=== PATIENT | female | born 1995 | race Caucasian/White ===

== ENCOUNTER 2017-03-20 18:25 | Emergency (ER) | payer BC, OTHER ==
[~2017-03-20] VITALS: Ht 165.1 cm; Wt 114.8 kg
[2017-03-20 18:28] VITALS: BP 138/89
== END 2017-03-20 20:18 | disposition home or self-care (01) ==
LOC: ED 20:03
DX: S16.1XXA Strain of muscle, fascia and tendon at neck level, initial encounter (principal); S20.212A Contusion of left front wall of thorax, initial encounter; I88.9 Nonspecific lymphadenitis, unspecified; V49.9XXA Car occupant (driver) (passenger) injured in unspecified traffic accident, initial encounter; Y93.89 Activity, other specified; Y92.488 Other paved roadways as the place of occurrence of the external cause; Y99.8 Other external cause status
CPT/HCPCS: 70450; 72125; 99284

== ENCOUNTER 2019-06-30 10:45 | Emergency (ER) | payer BC, OTHER ==
[~2019-06-30] VITALS: Ht 170.2 cm; Wt 114.5 kg
[2019-06-30 13:08] LABS: BASOPHILS # (AUTO) 0.02 x10^3/uL (0-0.1); BASOPHILS % (AUTO) 0 % (0-1); EOSINOPHILS # (AUTO) 0.41 x10^3/uL (0-0.4); EOSINOPHILS % (AUTO) 3 % (1-7); LYMPHOCYTES # (AUTO) 3.48 x10^3/uL (1-3.4); LYMPHOCYTES % (AUTO) 22 % (22-44); MD NO; MEAN CORPUSCULAR HEMOGLOBIN 31.7 pg (27.0-34.8); MEAN CORPUSCULAR HGB CONC 33.8 g/dL (32.4-35.8); MEAN CORPUSCULAR VOLUME 93.9 fL (80-100); MEAN PLATELET VOLUME 8.5 fL (7.4-10.4); MONOCYTES # (AUTO) 0.53 x10^3/uL (0.2-0.8); MONOCYTES % (AUTO) 3 % (2-9); NEUTROPHILS # (AUTO) 11.22 x10^3/uL (1.8-6.8); NEUTROPHILS % (AUTO) 72 % (42-75); PLATELET COUNT 265 x10^3/uL (130-400); RED BLOOD COUNT 4.95 x10^6/uL (3.82-5.3)
--- NOTE | 2019-06-30 13:17 | NUR ---
CANDY CUTTER HAND: CALLED FOR ROOM. PT IN [facility] CALLED [facility] TO NOTIFY.
--- NOTE | 2019-06-30 13:35 | NUR ---
PT IS 9 WEEKS . CO OF VAGINAL BLEEDING SINCE THIS MORNING AROUND 0700. PT REPORTS CRAMPING. PT ALREADY BEEN TO US. BLANKET PROVIDED. CALL LIGHT WITHIN REACH
[2019-06-30 14:00] LABS: MICROSCOPIC AUTO
[2019-06-30 14:02] VITALS: BP 154/98
[2019-06-30 14:03] LABS: CULTURE INDICATED? NO
--- NOTE | 2019-06-30 14:03 | NUR ---
PTS MOTHER CALLED. PT NOTIFIED.
== END 2019-06-30 14:32 ==
LOC: ED 14:26
DX: O20.0 Threatened abortion (principal)
CPT/HCPCS: 36415; 76801; 81001; 84702; 85025; 86901; 99284

== ENCOUNTER 2019-07-19 17:00 | Emergency (ER) | payer BC ==
[~2019-07-19] VITALS: Ht 170.2 cm; Wt 115.0 kg
[2019-07-19 17:12] VITALS: BP 144/84
--- NOTE | 2019-07-19 18:00 | NUR ---
PT UPRIGHT ON GURNEY AWAKE & COMFORTABLE, WATCHING TV, RESPONDS APPROP TO STAFF, NAD, COMFORT MEASURES PROVIDED, FRIEND AT BS, CALL LIGHT WITHIN REACH.
[2019-07-19 18:26] LABS: BASOPHILS # (AUTO) 0.08 x10^3/uL (0-0.1); BASOPHILS % (AUTO) 1 % (0-1); EOSINOPHILS # (AUTO) 0.52 x10^3/uL (0-0.4); EOSINOPHILS % (AUTO) 3 % (1-7); LYMPHOCYTES # (AUTO) 3.87 x10^3/uL (1-3.4); LYMPHOCYTES % (AUTO) 24 % (22-44); MD NO; MEAN CORPUSCULAR HEMOGLOBIN 31.6 pg (27.0-34.8); MEAN CORPUSCULAR HGB CONC 34.3 g/dL (32.4-35.8); MEAN CORPUSCULAR VOLUME 92.2 fL (80-100); MEAN PLATELET VOLUME 8.6 fL (7.4-10.4); MONOCYTES # (AUTO) 1.12 x10^3/uL (0.2-0.8); MONOCYTES % (AUTO) 7 % (2-9); NEUTROPHILS # (AUTO) 10.28 x10^3/uL (1.8-6.8); NEUTROPHILS % (AUTO) 65 % (42-75); PLATELET COUNT 283 x10^3/uL (130-400); RED BLOOD COUNT 4.92 x10^6/uL (3.82-5.3)
[2019-07-19 18:29] LABS: ANION GAP 7 mmol/L (5-15); CALCIUM 9.5 mg/dL (8.5-10.1); CHLORIDE 108 mmol/L (98-107); CREATININE 0.95 mg/dL (0.55-1.02)
--- NOTE | 2019-07-19 18:30 | NUR ---
PT TO US
[2019-07-19 18:54] LABS: CULTURE INDICATED? YES; MICROSCOPIC INDICATED
--- NOTE | 2019-07-19 18:54 | NUR ---
REPORT GIVEN TO MAYA
--- NOTE | 2019-07-19 19:45 | NUR ---
TASK RN: IN TO DISCUSS PLAN FOR D/C WITH PT. AWAITING PAPERWORK FOR D/C.
[2019-07-20] MEDS ORDERED: PREN1TAB60 PO (14:18)
== END 2019-07-19 19:55 | disposition home or self-care (01) ==
LOC: ED 19:45
DX: O03.4 Incomplete spontaneous abortion without complication (principal)
CPT/HCPCS: 36415; 76801; 80048; 81001; 82040; 84702; 85025; 87086; 99284

== ENCOUNTER 2019-07-20 13:38 | Day surgery (SDC) | payer BC ==
[~2019-07-20] VITALS: Ht 170.2 cm; Wt 113.2 kg
[2019-07-20] MEDS ORDERED: PREN1TAB60 PO (14:18)
[2019-07-20] MEDS ORDERED: LACTATED RINGERS 1,000 ML IV SCH (14:18)
[2019-07-20 14:20] VITALS: BP 127/87
[2019-07-20] MEDS ORDERED: METHYLERGONOVINE 0.2 MG/ML IM ONE ×2 (14:23→15:27)
[2019-07-20] MEDS ORDERED: OXYTOCIN 10 UNITS/ML, 1ML ONE ×2 (14:23→15:27)
[2019-07-20] MEDS ORDERED: MISOPROSTOL 200 MCG TABLET ONE (14:23)
[2019-07-20] MEDS ORDERED: LIDOCAINE 1%-EPI 1:100K, 20ML ONE (14:23)
[2019-07-20] MEDS ORDERED: PLEASE ENTER HEIGHT AND WEIGHT MC SCH (14:30)
[2019-07-20] MEDS ORDERED: MIDAZOLAM 1 MG/ML, 2ML ONE (15:21)
[2019-07-20] MEDS ORDERED: FENTANYL PF 100 MCG/2ML ONE (15:21)
[2019-07-20] MEDS ORDERED: ONDANSETRON 2MG/ML, 2ML ONE (15:27)
[2019-07-20] MEDS ORDERED: PROPOFOL 10 MG/ML, 20ML ONE (15:27)
[2019-07-20] MEDS ORDERED: DEXAMETHASONE 4 MG/ML, 1ML ONE (15:27)
[2019-07-20] MEDS ORDERED: CEFAZOLIN 1,000 MG ONE (15:27)
[2019-07-20] MEDS ORDERED: KETOROLAC 30 MG/1 ML ONE (15:27)
[2019-07-20] MEDS ORDERED: ACETAMINOPHEN 325 MG TABLET PO PRN (16:00)
[2019-07-20] MEDS ORDERED: OXYcodone 5 MG/5 ML ORAL.SOL UDC PO PRN (16:00)
[2019-07-20] MEDS ORDERED: PROMETHAZINE 25 MG/ML, 1ML IV PRN (16:00)
[2019-07-20] MEDS ORDERED: MEPERIDINE/PF 25MG/ML,1ML IVPush PRN (16:00)
[2019-07-20] MEDS ORDERED: FENTANYL PF 100 MCG/2ML IV PRN (16:00)
[2019-07-20] MEDS ORDERED: HYDROmorphone 1 MG/ML, 1ML INJ IVPush PRN (16:00)
[2019-07-20] MEDS ORDERED: hydrALAzine 20 MG/ML, 1ML IV PRN (16:00)
== END 2019-07-20 17:45 | disposition home or self-care (01) ==
LOC: OR 13:38
PROVIDERS: ATTEND Obstetrics & Gynecology Gynecology
DX: O03.4 Incomplete spontaneous abortion without complication (principal); Z72.89 Other problems related to lifestyle
CPT/HCPCS: 59812; 88305; J0690; J1100; J1885; J2210; J2250; J2405; J2590; J2704; J3010; J3490; J7120